=== PATIENT | female | born 1970 | race Two or more races ===

== ENCOUNTER 2019-08-09 15:24 | Inpatient (IN) | payer OTHER ==
[~2019-08-09] VITALS: Ht 162.6 cm; Wt 68.0 kg
--- NOTE | 2019-08-09 15:30 | NUR ---
BIB RA 58 FROM HOME, FOUND UNRESPONSIVE BY FAMILY,EMPTY ALCOHOL BOOTLE AT HER SIDE, (+) RESPONSE AFTER 4 MG NARCAN WAS GIVEN. PATIENT RESPONSIVE TO STIMULI. BREATHING EVEN AND UNLABORED, NO SOB NOTED, HOB ELEVATED, ATTACHED TO THE POUNCING MACHINE OPERATOR. NOTED WITH SOME FOAMING ON THE MOUTH. SUCTION PROVIDED.
[2019-08-09] MEDS ORDERED: ONDANSETRON HCL/PF - ER 4 MG/2 ML VIAL IV ONE (16:00)
[2019-08-09] MEDS ORDERED: IV NS 0.9% 1,000 ML BAG IV ONE (16:00)
[2019-08-09] MEDS ORDERED: ONDANSETRON HCL/PF 4 MG/2 ML VIAL ONE (16:05)
[2019-08-09 16:06] LABS: LYMPHOCYTES # (AUTO) 1.6 /CMM (0.8-4.8); MEAN CORPUSCULAR HGB CONC 31 g/dl (31.0-36.0); MONOCYTES # (AUTO) 0.6 /CMM (0.1-1.30); RED BLOOD CELL COUNT(AUTO) 5.85 MIL/uL (4.0-5.2)
[2019-08-09 16:14] LABS: BASOPHILS % (AUTO) 0.6 % (0.0-2.0); CALCIUM, SERUM 9.3 mg/dL (8.5-10.1); CARBON DIOXIDE 27 mmol/L (21-32); CHLORIDE 105 mmol/L (98-107); CREATININE 0.9 mg/dL (0.6-1.3); EOSINOPHILS % (AUTO) 1.9 % (0.0-6.0); GLUCOSE 113 mg/dL (74-106); HEMATOCRIT 40 % (33-45); HEMOGLOBIN 12.3 g/dL (11.5-14.8); LYMPHOCYTES % (AUTO) 22.4 % (20.0-44.0); MEAN CORPUSCULAR VOLUME 68 fL (82-100); MONOCYTES % (AUTO) 8.2 % (2.0-12.0); NEUTROPHILS # (AUTO) 4.8 /CMM (1.8-8.9); NEUTROPHILS % (AUTO) 66.9 % (43.0-81.0); PLATELET COUNT (AUTO) 252 /CMM (150-450); POTASSIUM 3.7 mmol/L (3.5-5.1); SODIUM SERUM 142 mmol/L (136-145); UREA NITROGEN, BLOOD 12 mg/dL (7-18); WHITE BLOOD COUNT (AUTO) 7.2 K/uL (4.3-11.0)
[2019-08-09 16:27] LABS: ACETAMINOPHEN < 2 ug/ml (10-30); ALANINE AMINOTRANSFERASE 52 U/L (12-78); ALBUMIN 3.8 g/dL (3.4-5.0); ALCOHOL, BLOOD < 3 mg/dL (0-0); ALKALINE PHOSPHATASE 106 U/L (46-116); ASPARTATE AMINOTRANSFERASE 29 U/L (15-37); BILIRUBIN,DIRECT 0.1 mg/dL (0.0-0.2); BILIRUBIN,TOTAL 0.4 mg/dL (0.2-1.0); SALICYLATE < 2.8 mg/dL (2.8-20.0); TOTAL PROTEIN, SERUM 7.4 g/dL (6.4-8.2)
[2019-08-09] MEDS ORDERED: NALOXONE HCL 0.4 MG/ML AMPUL IV ONE (17:00)
[2019-08-09] MEDS ORDERED: NALOXONE HCL 0.4 MG/ML AMPUL ONE (17:07)
--- NOTE | 2019-08-09 19:47 | NUR ---
PT EASILY AROUSABLE. NO ACUTE DISTRESS NOTED. WILL CONTINUE TO MONITOR
--- NOTE | 2019-08-09 21:06 | NUR ---
SPOKE WITH DAUGHTER NENITA HENSON ON THE PHONE. DAUGHTER IS ON EMERGENCY CONTACT. GAVE HER UPDATE ON PT STATUS. DAUGHTER STATED SHE CAN PARCEL POST DELIVERY THE PT IF PT GETS DISCHARGED.
--- NOTE | 2019-08-09 22:18 | NUR ---
CALLED RADIOLOGY FOR CT
--- NOTE | 2019-08-09 22:33 | NUR ---
PT PLACED PT ON 4 LPM O2.
--- NOTE | 2019-08-09 22:45 | NUR ---
PT TAKEN TO CT
--- NOTE | 2019-08-09 23:00 | NUR ---
PT BACK FROM CT
[2019-08-10] VITALS (27 sets, daily range): BP systolic 81–120; BP diastolic 55–82
--- NOTE | 2019-08-10 00:15 | NUR ---
PT SLEEPING, NO ACUTE DISTRESS NOTED. WILL CONTINUE TO MONITOR
--- NOTE | 2019-08-10 04:09 | NUR ---
Patient is resting comfortably in bed with eyes closed. Easily aroused. VSS
--- NOTE | 2019-08-10 04:31 | NUR ---
MD MADE AWARE OF SEIZURE EPISODE. ORDERS RECEIVED.
--- NOTE | 2019-08-10 04:31 | NUR ---
NEW ONSET SEIZURE WITNESSED BY SHEET TURNER. SEIZURE LASTED FOR 1 MINUTE. SEIZURE PRECAUTIONS IMPLEMENTED.
[2019-08-10] MEDS ORDERED: LEVETIRACETAM (500MG) 500 MG/5 ML VIAL IV ONE (04:32)
[2019-08-10] MEDS ORDERED: HYDR50TA61 PO (04:52)
[2019-08-10] MEDS ORDERED: LISI-603 PO (04:52)
[2019-08-10] MEDS ORDERED: CITA10TA9 PO (04:52)
[2019-08-10] MEDS ORDERED: LEVETIRACETAM (500MG) 1,000 MG in IV NS 0.9% 100 ML IV SCH (05:00)
[2019-08-10] MEDS ORDERED: LEVETIRACETAM (500MG) 1,000 MG in IV NS 0.9% 100 ML IV ONE (05:00)
--- NOTE | 2019-08-10 05:00 | NUR ---
SPOKE TO [facility] DOCTOR [place], AUTH #[id number] RECEIVED FOR ADMISSION.
--- NOTE | 2019-08-10 05:12 | NUR ---
NURSE NOT AVAILABLE. CALL BACK IN 5 MINUTES
--- NOTE | 2019-08-10 05:20 | NUR ---
REPORT GIVEN TO ESTUARDO RYAN
--- NOTE | 2019-08-10 05:30 | NUR ---
SALONI PARMAR PAGED PER GRANT HERNANDES ORDER.
--- NOTE | 2019-08-10 05:40 | NUR ---
SHANKER OUT AT BEDSIDE FOR BLOOD DRAW
[2019-08-10] MEDS ORDERED: IV NS 0.9% 500 ML IV ONE (05:45)
[2019-08-10] MEDS ORDERED: CT SWABBABLE VALVE TRANS SET 1 EA INFUS.SET MC ONE (05:45)
[2019-08-10] MEDS ORDERED: IOHEXOL-350 100 ML VIAL IV ONE (05:45)
--- NOTE | 2019-08-10 05:47 | NUR ---
PT SENT TO CT
--- NOTE | 2019-08-10 05:59 | NUR ---
PT BACK FROM CT
[2019-08-10 06:50] LABS: ABG BASE EXCESS -7.6 mmol/L; ABG PCO2 77.7 mmHg (35.0-45.0); ABG PH 7.104 (7.350-7.450); ABG PO2 159.8 mmHg (75.0-100.0); AaDO2 182.5 mmHg; SITE, ABG Left Brachial
--- NOTE | 2019-08-10 06:56 | NUR ---
SPOKE WITH DEBBIE FROM POISON CONTROL. ACCDG TO DEBBIE, MONITOR AND TREAT SYMPTOMS FOR NOW. CALL IF PATIENT WORSENS.
--- NOTE | 2019-08-10 07:20 | NUR ---
MD, RT AND RN AT BEDSIDE FOR INTUBATION SET UP.
--- NOTE | 2019-08-10 07:21 | NUR ---
MEDS GIVEN KLAUS AND ETOMIDATE PER ORDER .
--- NOTE | 2019-08-10 07:22 | NUR ---
INUBATION DONE BY , ET SIZE 7 AND 24 AT THE LIP, POSITIVE COLOR CHANGE, HOOKED TO MECH VENT.
[2019-08-10] MEDS ORDERED: ETOMIDATE 2 MG/ML VIAL IV ONE ×2 (07:30→09:01)
[2019-08-10] MEDS ORDERED: ROCURONIUM BROMIDE 100 MG/10 ML VIAL IV ONE (07:30)
--- NOTE | 2019-08-10 07:36 | NUR ---
PAGED DR. BANG.
--- NOTE | 2019-08-10 07:40 | NUR ---
NG TUBE INSERTED PER .
[2019-08-10 07:43] LABS: THYROID STIMULATING HORMONE 3.752 uIU/mL (0.358-3.74)
--- NOTE | 2019-08-10 07:50 | NUR ---
REPORT RECEIVED FROM VISHNU MARTE FOR ESTER
--- NOTE | 2019-08-10 07:51 | NUR ---
REPORT GIVEN TO ESTUARDO HAGAN FOR ESTER
--- NOTE | 2019-08-10 07:56 | NUR ---
REPORT GIVEN TO RAJNI MARTE FOR ESTER
--- NOTE | 2019-08-10 07:57 | NUR ---
COVID SWAB SENT TO [facility]
--- NOTE | 2019-08-10 07:57 | NUR ---
FLU SWAB SENT TO LAB
--- NOTE | 2019-08-10 07:57 | NUR ---
URINE SENT TO LAB
[2019-08-10] MEDS ORDERED: TERBUTALINE SULFATE 1 MG/ML VIAL ONE (08:57)
[2019-08-10] MEDS ORDERED: TERBUTALINE SULFATE 1 MG/ML VIAL SQ ONE (09:00)
[2019-08-10] MEDS ORDERED: ROCURONIUM BROMIDE 50 MG/5 ML IV ONE (09:01)
--- NOTE | 2019-08-10 09:48 | NUR ---
ROOM 250
--- NOTE | 2019-08-10 09:48 | NUR ---
ROOM 256
--- NOTE | 2019-08-10 09:54 | NUR ---
REPORT GIVEN TO MIGUEL MARTE OF ICU
[2019-08-10] MEDS: IV D5/ 0.9% NACL 1,000 ML IV PRN ×2 (10:59→18:22)
[2019-08-10] MEDS ORDERED: PROPOFOL 100 ML IV PRN (11:00)
[2019-08-10] MEDS: ACETAMINOPHEN 650 MG/20.3 ML UDC NG PRN ×2 (11:05→18:23)
[2019-08-10 11:09] LABS: ABG BASE EXCESS -2.2 mmol/L; ABG PCO2 34.1 mmHg (35.0-45.0); ABG PH 7.417 (7.350-7.450); ABG PO2 332.6 mmHg (75.0-100.0); PEEP,BG 5 cm H2O; SITE, ABG Right Radial; VT, ABG 500 mL
--- NOTE | 2019-08-10 11:25 | NUR ---
VICE PRESIDENT OF MANUFACTURING RECEIVED PT FROM ER INTUBATED ON VENT SETTINGS NOTED VS SABLE, IV ACCESS PATENT RAGSDALE PRESENT DRAINING CLEAR URINE, NG TUBE POSITIVE PLACEMENT, CONTACTED DR. DIANNA ROCHA, ORDERS RECEIVED AND FOLLOWED, PT HAS GREEN THICK MUCOUS DISCHARGE FROM ETT, FEVER 101.3 TYLENOL GIVEN COLLING MEASURES TAKEN WILL CONTINUE TO MONITOR.
[2019-08-10 12:00] LABS: ABG BASE EXCESS -0.6 mmol/L; ABG OXYGEN SATURATION 97.6 % (92.0-98.5); ABG PCO2 33.5 mmHg (35.0-45.0); ABG PH 7.451 (7.350-7.450); ABG PO2 94.9 mmHg (75.0-100.0); AaDO2 223.9 mmHg; COHb 0.5 % (0.5-1.5); MetHb 0.4 % (0.0-1.5); O2Hb 96.7 % (94.0-97.0); PEEP,BG 5 cm H2O; SITE, ABG Left Brachial; VT, ABG 500 mL
[2019-08-10 12:10] LABS: BASOPHILS % (AUTO) 0.3 % (0.0-2.0); EOSINOPHILS % (AUTO) 1.5 % (0.0-6.0); HEMATOCRIT 39 % (33-45); HEMOGLOBIN 11.8 g/dL (11.5-14.8); LYMPHOCYTES # (AUTO) 0.9 /CMM (0.8-4.8); LYMPHOCYTES % (AUTO) 11.9 % (20.0-44.0); MEAN CORPUSCULAR HGB CONC 31 g/dl (31.0-36.0); MEAN CORPUSCULAR VOLUME 68 fL (82-100); MONOCYTES # (AUTO) 0.3 /CMM (0.1-1.30); MONOCYTES % (AUTO) 3.5 % (2.0-12.0); NEUTROPHILS # (AUTO) 6.2 /CMM (1.8-8.9); NEUTROPHILS % (AUTO) 82.8 % (43.0-81.0); PLATELET COUNT (AUTO) 233 /CMM (150-450); RED BLOOD CELL COUNT(AUTO) 5.65 MIL/uL (4.0-5.2); WHITE BLOOD COUNT (AUTO) 7.5 K/uL (4.3-11.0)
[2019-08-10 12:21] LABS: POTASSIUM 3.8 mmol/L (3.5-5.1)
--- NOTE | 2019-08-10 14:00 | NUR ---
TAPE RECORDER MECHANIC LACTIC ACID ELEVATED CRITICAL NOTIFIED DR. JOSEFINA BUSTAMANTE ORDERS RECEIVED AND CARRIED OUT , ALSO NOTIFIED PT HAS BLOOD TINGED NASAL DISCHARGE NO NEW ORDERS, PT STILL HAVE FEVER 101 COOLING MEASURES TAKEN WILL CONTINUE TO MONITOR.
[2019-08-10] MEDS ORDERED: IV NS 0.9% 1,000 ML BAG IV ONE (15:30)
--- NOTE | 2019-08-10 19:10 | NUR ---
CRIME SCENE TECHNICIAN NOTE RECEIVED PATIENT IN BED RESTING, WITH HOB ELEVATED. OBTUNDED. VENT DEPENDENT. BREATHING IS EVEN AND NON LABORED, NO SOB NOTED. RESPONSIVE TO LOCALIZED PAIN. ON RAGSDALE CATH, URINE IS CLEAR AND YELLOW IN COLOR, DRAINING WELL. NGT ON LEFT NARE, CLAMPED. IV SITES ON LAC GAUGE 20 AND RAC GAUGE 20. BOTH IV SITES CLEAN AND PATENT. ON BILATERAL SOFT WRIST RESTRAINTS. CAPILLARY REFILL < 3 SECONDS. ON IV HYDRATION D5NS RUNNING AT 150 MLS/HR. IN NO APPARENT DISTRESS NOTED AT THIS TIME. BED IS LOCKED AND LOWERED FOR SAFETY. WILL CONTINUE TO MONITOR.
--- NOTE | 2019-08-10 19:48 | NUR ---
RT NOTE: RECEIVED PATIENT ON MECH VENT ON NOTED SETTINGS PER MD ORDER WITH 7.0 ETT SECURED AT 24CM AT THE TEETH. ALARMS CHECKED AND AUDIBLE. CUFF PRESSURE TAPER MACHINE. AMBU BAG AT [facility]. VENT PLUGGED INTO THE RED OUTLET. SUCTION DONE PRN. NO RESP DISTRESS NOTED. WILL CONT TO MONITOR PATIENT.
[2019-08-10] MEDS ORDERED: PIPERACILLIN /TAZOBACTAM 3.375 G in IV D5W 50 ML IV ONE (20:00)
--- NOTE | 2019-08-10 20:00 | NUR ---
RN NOTE RECEIVED CRITICAL LAB VALUE: LACTIC ACID 2.6 EXECUTIVE VP SALONI JAVIER MADE AWARE. NO NEW ORDERS RECEIVED.
[2019-08-11] VITALS (28 sets, daily range): BP systolic 93–127; BP diastolic 54–85
[2019-08-11] MEDS: IV D5/ 0.9% NACL 1,000 ML IV PRN ×3 (01:31→16:39)
[2019-08-11] MEDS: PIPERACILLIN /TAZOBACTAM 3.375 G in IV D5W 100 ML IV SCH ×3 (01:36→17:36)
[2019-08-11 04:17] LABS: BASOPHILS % (AUTO) 0.3 % (0.0-2.0); EOSINOPHILS % (AUTO) 1.3 % (0.0-6.0); HEMATOCRIT 30 % (33-45); HEMOGLOBIN 9.6 g/dL (11.5-14.8); LYMPHOCYTES # (AUTO) 1.6 /CMM (0.8-4.8); LYMPHOCYTES % (AUTO) 17.9 % (20.0-44.0); MEAN CORPUSCULAR HGB CONC 32 g/dl (31.0-36.0); MEAN CORPUSCULAR VOLUME 67 fL (82-100); MONOCYTES # (AUTO) 0.6 /CMM (0.1-1.30); NEUTROPHILS # (AUTO) 6.7 /CMM (1.8-8.9); NEUTROPHILS % (AUTO) 73.5 % (43.0-81.0); PLATELET COUNT (AUTO) 181 /CMM (150-450); RED BLOOD CELL COUNT(AUTO) 4.48 MIL/uL (4.0-5.2); WHITE BLOOD COUNT (AUTO) 9.1 K/uL (4.3-11.0)
[2019-08-11 04:33] LABS: CREATININE 0.8 mg/dL (0.6-1.3); POTASSIUM 3.5 mmol/L (3.5-5.1)
[2019-08-11 04:42] LABS: CALCIUM, SERUM 8.2 mg/dL (8.5-10.1)
--- NOTE | 2019-08-11 05:12 | NUR ---
RN NOTE PATIENT TOLERATED BED BATH WELL WITH MILD AGITATION. NO BM NOTED. RAGSDALE CATH DRAINING WELL. WILL CONTINUE TO MONITOR.
--- NOTE | 2019-08-11 06:57 | NUR ---
ARC CUTTER CLOSING NOTE NO SIGNIFICANT CHANGES NOTED THROUGHOUT THE NIGHT. PATIENT OBTUNDED, RESPONSIVE TO LOCALIZED PAIN. STILL ON BILATERAL SOFT WRIST RESTRAINTS. ALL DUE MEDS GIVEN AND TOLERATED WELL. KEPT NPO. ALL NEEDS ATTENDED AND MET. PATIENT KEPT CLEAN, DRY, AND COMFORTABLE. WILL ENDORSE TO AM SHIFT RN FOR CONTINUATION OF CARE.
--- NOTE | 2019-08-11 07:30 | NUR ---
RN OPENING NOTES RECEIVED PATIENT RESTING IN BED COMFORTABLY, NO S/SX OF DISTRESS AT THIS TIME. SHE IS ON MECH VENT, AC 16, TV 500, FIO2 35%, TOLERATING SETTINGS WELL. PT IS OBTUNDED, NON-VERBAL. NGT ON L NARE PATENT AND INTACT, CLAMPED. RAGSDALE CATH PATENT AND INTACT. LAC 20G AND RHAND 20 G ARE PATENT AND INTACT, INFUSING D5 NS AT 150 ML/HR. SAFETY MEASURES HAVE BEEN IMPLEMENTED, CALL LIGHT IS WITHIN REACH, BED IS IN LOWEST AND LOCKED POSITION, SIDE RAILS UP X2, WILL CONTINUE TO MONITOR FOR ANY CHANGES.
--- NOTE | 2019-08-11 08:11 | NUR ---
RN NOTES VENT SETTINGS HAVE CHANGED FROM AC TO SIMV DURING SPONTANEOUS BREATHING TRIAL. PT APPEARS TO BE TOLERATING WELL, VITALS WNL. WILL CONTINUE TO MONITOR FOR ANY CHANGES.
[2019-08-11 08:48] LABS: ABG BASE EXCESS -4.5 mmol/L; ABG PCO2 30.3 mmHg (35.0-45.0); ABG PH 7.419 (7.350-7.450); ABG PO2 103.2 mmHg (75.0-100.0); AaDO2 111.1 mmHg; COHb 0.2 % (0.5-1.5); MetHb 0.6 % (0.0-1.5); O2Hb 96.2 % (94.0-97.0); PEEP,BG 5 cm H2O; SITE, ABG Left Radial; VENT MODE, BG SIMV PS 15
--- NOTE | 2019-08-11 10:09 | NUR ---
ESTUARDO NOTES DR. MONTES MADE AWARE REGARDING HOME MEDICATION RECONCILIATION, WILL CONTINUE TO MONITOR Addendum: 08/11/19 at 1117 by JENNIFER BAUTISTA RN CORRECTION: DR. ROCHA NOTIFIED REGARDING HOME MED RECON
[2019-08-11] MEDS: ACETAMINOPHEN 650 MG/20.3 ML UDC NG PRN (10:27)
--- NOTE | 2019-08-11 12:19 | NUR ---
SW Consult SW was consulted due to the pts substance abuse. Pts toxicology was positive for amphetamines, cannabis and opiates. SW was unable to meet with the pt due to the pt being intubated. Plan: SW will follow up with the pt once the pt is able to be interviewed.
--- NOTE | 2019-08-11 15:36 | NUR ---
RN NOTES PATIENT REMOVED HER ETT. PT WAS IN BILATERAL SOFT WRISTS RESTRAINTS BUT MANAGED TO EXTUBATE HERSELF. PT IS NOW ON 3L OF OXYGEN VIA NC, TOLERATING WELL. SATING AT 95-96%, NO RESP DISTRESS NOTED. PT WAS SUCTIONED AND CLEARED OF SECRETIONS. VITAL SIGNS ARE STABLE. PT IS STILL GOING IN AND OUT OF CONSCIOUSNESS. DR. HAGER AND DR. ROCHA MADE AWARE, NO NEW ORDERS AT THIS TIME, WILL CONTINUE TO MONITOR FOR ANY CHANGES.
[2019-08-11 16:41] LABS: ABG OXYGEN SATURATION 95.4 % (92.0-98.5); ABG PCO2 39.4 mmHg (35.0-45.0); ABG PH 7.381 (7.350-7.450); ABG PO2 79.8 mmHg (75.0-100.0); AaDO2 87.8 mmHg; COHb 0.2 % (0.5-1.5); MetHb 0.3 % (0.0-1.5); O2Hb 94.9 % (94.0-97.0); SITE, ABG Right Radial; VENT MODE, BG nasal cannula
--- NOTE | 2019-08-11 19:10 | NUR ---
RN NOTES PATIENT IS RESTING IN BED COMFORTABLY POST SELF EXTUBATION. SHE IS ON 3L OF OXYGEN VIA NC, TOLERATING WELL. VITAL SIGNS ARE STABLE, PT NEEDS HAVE BEEN MET. SAFETY MEASURES HAVE BEEN IMPLEMENTED, CALL LIGHT IS WITHIN REACH, BED IS IN LOWEST AND LOCKED POSITION, BILATERAL SOFT WRIST RESTRAINTS INTACT. PT HAS BEEN ENDORSED TO NIGHTSHIFT RN FOR ESTER.
--- NOTE | 2019-08-11 20:00 | NUR ---
PATIENT IN BED COMFORTABLY POST SELF EXTUBATION.ON 3L OF OXYGEN VIA NC, TOLERATING WELL.SATING 99% VITAL SIGNS STABLE AFEBRILE ,NO SOB NO DISTRESS NOTED ON NGT INTACT AND PATENT ,PTS STILL ON NPO STATUS ,ALL NEEDS ATTENDED TO . SAFETY MEASURES HAVE BEEN IMPLEMENTED, CALL LIGHT IS WITHIN REACH, BED IS IN LOWEST AND LOCKED POSITION, BILATERAL SOFT WRIST RESTRAINTS INTACT. WILL CONTINUE TO MONITOR PTS.
--- NOTE | 2019-08-11 21:37 | NUR ---
TRADER NOTES RECEIVED A CALL FROM MY GUTIERRES UPDATED WITH PTS CURRENT CONDITION .
[2019-08-12] VITALS (27 sets, daily range): BP systolic 122–171; BP diastolic 63–101
[2019-08-12] MEDS: PIPERACILLIN /TAZOBACTAM 3.375 G in IV D5W 100 ML IV SCH ×3 (01:48→18:03)
[2019-08-12 04:58] LABS: BASOPHILS % (AUTO) 0.5 % (0.0-2.0); EOSINOPHILS % (AUTO) 2.6 % (0.0-6.0); HEMATOCRIT 33 % (33-45); HEMOGLOBIN 10.1 g/dL (11.5-14.8); LYMPHOCYTES # (AUTO) 1.4 /CMM (0.8-4.8); LYMPHOCYTES % (AUTO) 17.2 % (20.0-44.0); MEAN CORPUSCULAR HGB CONC 31 g/dl (31.0-36.0); MEAN CORPUSCULAR VOLUME 67 fL (82-100); MONOCYTES # (AUTO) 0.5 /CMM (0.1-1.30); MONOCYTES % (AUTO) 6.5 % (2.0-12.0); NEUTROPHILS # (AUTO) 5.9 /CMM (1.8-8.9); NEUTROPHILS % (AUTO) 73.2 % (43.0-81.0); PLATELET COUNT (AUTO) 183 /CMM (150-450); RED BLOOD CELL COUNT(AUTO) 4.82 MIL/uL (4.0-5.2); WHITE BLOOD COUNT (AUTO) 8.1 K/uL (4.3-11.0)
[2019-08-12 05:14] LABS: CALCIUM, SERUM 8.4 mg/dL (8.5-10.1); CREATININE 0.9 mg/dL (0.6-1.3); MAGNESIUM 1.8 mg/dL (1.8-2.4); PHOSPHORUS 2.7 mg/dL (2.5-4.9); POTASSIUM 3.6 mmol/L (3.5-5.1)
--- NOTE | 2019-08-12 06:35 | NUR ---
BALING MACHINE TENDER NOTES PTS REMAINS ON 02 AT 3LITERS VIA NC NO SOB NO DISTRESS NOTED , REMAINS ON IVF D5NS AT 150CC/HR INFUSING WELL , SEEN BY DR MARRERO PTS CAN BE DOWNGRADE ,WILL ENDORSE TO RN DAY SHIFT FOR CONTINUITY OF CARE.KEPT PTS CLEAN DRY AND COMFORTABLE.
[2019-08-12] MEDS: IV D5/ 0.9% NACL 1,000 ML IV PRN ×3 (07:38→22:00)
[2019-08-12 08:21] LABS: ABG BASE EXCESS -2.9 mmol/L; ABG OXYGEN SATURATION 95.6 % (92.0-98.5); ABG PCO2 36.5 mmHg (35.0-45.0); ABG PH 7.391 (7.350-7.450); ABG PO2 80.2 mmHg (75.0-100.0); AaDO2 76.4 mmHg; COHb 0.3 % (0.5-1.5); MetHb 0.6 % (0.0-1.5); O2Hb 94.7 % (94.0-97.0); SITE, ABG Right Radial; VENT MODE, BG 2L NC
--- NOTE | 2019-08-12 09:45 | NUR ---
RN NOTE 0715: Received patient lethargic. Able to answer 1 to 2 questions at a time. Very drowsy. 97% on 3LPM of O2 via NC, will titrate as tolerated. Rgiht NGT intact, clamped. Mccormick cath intact, with clear yellow urine drained to BSD. PIVs intact. IVF infusing as ordered. SR on the monitor. 0830: Tried to titrate off O2, went to 89% sat, 92 on 1LPM, will keep on 2LPM, 95% sat. 0900: S/E by Dr. Cintron, still lethargic, aware for ABG result per MD, will keep her in ICU, CN aware. 0945: No any significant changes. Spoke with daughter via phone, updated re: patient's condition.
[2019-08-12] MEDS: hydrALAZINE HCL IV 20 MG VIAL IV PRN (18:45)
--- NOTE | 2019-08-12 19:15 | NUR ---
RN OPENING NOTES RECEIVED PATIENT SLEEPING IN BED, BUT EASY TO AROUSE, A/OX3, LETHARGIC. ON 2L OF OXYGEN VIA NC, TOLERATING WELL, SATURATING 98% AT THE MOMENT. NO SOB OR RESPIRATORY DISTRESS NOTED. ON TELE MONITOR SR WITH HR 80'S. IV SITES BOTH FLUSHING AND PATENT, D5NS RUNNING AT 150ML/HR, TOLERATING WELL, NO INFILTRATION NOTED. RAGSDALE CATH INTACT AND DRAINING WELL. NPO EXCEPT MEDS. SAFETY MEASURES IN PLACE; CALL LIGHT WITHIN REACH, SIDE RAILS UP X2, BED LOWEST AND LOCKED POSITION, HOB ELEVATED, BED ALARM ON. WILL CONTINUE TO MONITOR PATIENT CLOSELY.
[2019-08-13] VITALS (16 sets, daily range): BP systolic 138–171; BP diastolic 63–99
[2019-08-13] MEDS: ACETAMINOPHEN 650 MG/20.3 ML UDC NG PRN (00:18)
--- NOTE | 2019-08-13 00:30 | NUR ---
RN NOTES FREQUENT ROUNDING DONE. PATIENT RESTING IN BED COMFORTABLY. NOTED WITH FEVER 100.3 VIA ORALLY. TYLENOL GIVEN. COOLING MEASURES IN PLACE. WILL CONT TO MONITOR PATIENT.
--- NOTE | 2019-08-13 01:30 | NUR ---
RN NOTES RECHECKED PATIENT TEMP 99.6 VIA ORALLY. COOLING MEASURES MAINTAINED. WILL CONT TO MONITOR.
[2019-08-13] MEDS: PIPERACILLIN /TAZOBACTAM 3.375 G in IV D5W 100 ML IV SCH ×3 (02:00→19:20)
[2019-08-13] MEDS: IV D5/ 0.9% NACL 1,000 ML IV PRN ×2 (04:55→14:58)
[2019-08-13] MEDS: hydrALAZINE HCL IV 20 MG VIAL IV PRN ×2 (06:09→13:00)
--- NOTE | 2019-08-13 06:46 | NUR ---
RN CLOSING NOTES PATIENT SLEEPING IN BED, BUT EASY TO AROUSE, A/OX3, MORE ALERT NOW. HYDRALAZINE PRN GIVEN DUE TO SBP 167, BP NOW 141/87. ON 2L OF OXYGEN VIA NC, TOLERATING WELL, SATURATING 98% AT THE MOMENT. NO SOB OR RESPIRATORY DISTRESS NOTED. ON TELE MONITOR SR WITH HR 70'S. IV SITES BOTH FLUSHING AND PATENT, D5NS RUNNING AT 150ML/HR, TOLERATING WELL, NO INFILTRATION NOTED. RAGSDALE CATH INTACT AND DRAINING WELL. SAFETY MEASURES MAINTAINED. KEPT PT CLEAN, DRY, AND COMFORTABLE. WILL ENDORSE TO AM RN FOR ESTER. AT 0545, DAUGHTER CALLED AND UPDATED ON PATIENT'S CONDITION AND ANSWERED ALL QUESTIONS.
--- NOTE | 2019-08-13 08:00 | NUR ---
SEEN SLEEPING BUT EASILY AROUSABLE TO NAME. WAKE, ALERT AND ORIENTED, ANSWERS APPROPRIATELY, CLEAR SPEECH, FOLLOWS SIMPLE COMMANDS. HEMODYNAMICALY STABLE ON THE MONITOR. DENIES PAIN AND DISCOMFORT.
--- NOTE | 2019-08-13 10:00 | NUR ---
SEEN AND EXAMINED BY DR. MOODY TO DOWNGRADE TO TELE STATUS.
--- NOTE | 2019-08-13 12:00 | NUR ---
PATIENT REMAINS AWAKE AND ALERT. O2 AT 2 L N/C-SPO2 98%. PLACED ON ROOM AIR-SPO2 REMAINS>96%. AWAITING TO TRANSFER TO TELE FLOOR.
--- NOTE | 2019-08-13 12:15 | NUR ---
REPORT GIVEN TO ESTUARDO MENDEZ FOR ESTER.
--- NOTE | 2019-08-13 12:35 | NUR ---
TRANSFERRED TO . 311-1 IN STABLE CONDITION. SR-80'S. SBP.150'S. RA -SPO2 96%.
--- NOTE | 2019-08-13 12:45 | NUR ---
RECEIVED PT. VIA BED FROM ICU.ALERT AND ORIENTED X4.IV SITES BOTH HANDS.PLEASANT,COOPERATIVE.VS TAKEN HOOKED UP TO TELE.SR RATE OF 77.SIDE RAILS UP CALL LIGHT WITHIN REACH.SKIN WARM AND DRY.TEARY EYED AT TIMES.
--- NOTE | 2019-08-13 13:00 | NUR ---
SHORTLY AFTER ARRIVAL ON FLOOR MEDICATED WITH HYDRALAZINE FOR HIGH BP.
--- NOTE | 2019-08-13 18:30 | NUR ---
NO CHANGE IN STATUS.
--- NOTE | 2019-08-13 19:45 | NUR ---
TELERN FULLY AWAKE, PRESENT IVF INFUSING WELL. COMPLAINTS OF LOWER BACK PAIN. PLACED CALL TO DR MEDLEY, ORDERS RECEIVED.
[2019-08-13] MEDS ORDERED: LIDOCAINE 5% (PATCH) 1 EA PATCH TP SCH (20:30)
[2019-08-13] MEDS: ACETAMINOPHEN 325 MG TABLET PO PRN (21:12)
[2019-08-14] VITALS: BP 145/79
[2019-08-14] MEDS: IV D5/ 0.9% NACL 1,000 ML IV PRN (02:11)
[2019-08-14] MEDS: PIPERACILLIN /TAZOBACTAM 3.375 G in IV D5W 100 ML IV SCH ×2 (02:11→09:23)
--- NOTE | 2019-08-14 04:37 | NUR ---
TELERN REMAINS SR TO ST ON THE MONITOR. ASLEEP OF THIS TIEM. CLOSELY WATCHED.
--- NOTE | 2019-08-14 06:50 | NUR ---
TELERN REMAINS UNCHANGED. EAGER TO GO HOME.
--- NOTE | 2019-08-14 07:30 | NUR ---
FONDANT MACHINE OPERATOR OPENING NOTES RECEIVED PT IN BED, AWAKE. A/O X4,WITH OCCASIONAL COUGHING NOTED. PT TOLERATING RA, WITH NO ACUTE RESPIRATORY DISTRESS NOTED. ON TELEMONITORING WITH SR 74. PT STATED PAIN OF 5/10 AT THE BACK, PT ALSO ADDED SHE HAS LIDOCAINE PATCH AT THE MOMENT AND WANTS TO REPLACE IT WITH A NEW ONE AT 9 AM. RN TO FOLLOW UP WITH DR. ROCHA/HOSPITALIST. RN INFORMED PT REGARDING USUAL DOSE OF PATCH 12HOURS, ON AND 12HOURS OFF. PT INSISTING SHE WANTED A NEW ONE AFTER. PT ALSO CONCERNED WHEN SHE WILL BE DISCHARGE AND CAN IT BE TODAY, RN AGAIN TO FOLLOW UP WITH HOSPITALIST. IVF D5NS AT 150ML/HR TO LAC G20, INTACT AND INFUSING WELL. PT KEPT COMFORTABLE IN BED. CALL LIGHT KEPT WITHIN REACH. PT'S BED IN LOWEST, LOCKED POSITION WITH SRX3. WILL CONTINUE PLAN OF CARE.
[2019-08-14 08:00] VITALS: BP 161/83
[2019-08-14 08:37] LABS: BASOPHILS % (AUTO) 0.7 % (0.0-2.0); EOSINOPHILS % (AUTO) 4.8 % (0.0-6.0); HEMATOCRIT 29 % (33-45); HEMOGLOBIN 9.4 g/dL (11.5-14.8); LYMPHOCYTES # (AUTO) 1.6 /CMM (0.8-4.8); MEAN CORPUSCULAR HGB CONC 32 g/dl (31.0-36.0); MEAN CORPUSCULAR VOLUME 65 fL (82-100); MONOCYTES # (AUTO) 0.4 /CMM (0.1-1.30); MONOCYTES % (AUTO) 9.8 % (2.0-12.0); NEUTROPHILS # (AUTO) 2.1 /CMM (1.8-8.9); NEUTROPHILS % (AUTO) 48.7 % (43.0-81.0); PLATELET COUNT (AUTO) 237 /CMM (150-450); RED BLOOD CELL COUNT(AUTO) 4.49 MIL/uL (4.0-5.2); WHITE BLOOD COUNT (AUTO) 4.4 K/uL (4.3-11.0)
[2019-08-14 09:12] LABS: CALCIUM, SERUM 8.1 mg/dL (8.5-10.1); CREATININE 0.7 mg/dL (0.6-1.3); MAGNESIUM 1.6 mg/dL (1.8-2.4); PHOSPHORUS 3.1 mg/dL (2.5-4.9)
[2019-08-14 09:26] LABS: POTASSIUM 2.7 mmol/L (3.5-5.1)
[2019-08-14] MEDS: ACETAMINOPHEN 325 MG TABLET PO PRN (09:39)
[2019-08-14] MEDS ORDERED: POTASSIUM CL. PREMIX PERIPHER. 50 ML IV SCH (11:00)
--- NOTE | 2019-08-14 11:19 | NUR ---
RN NOTES SEEN AND EVALUATED [place] DR. ROCHA, PT MAY GO HOME TODAY. REMOVE RAGSDALE CATH. MAY PLACE LIDOCAINE PATCH AT THE BACK BEFORE LEAVING TODAY WELL. INFORMED PATIENT AND AWARE OF THE PLAN.
--- NOTE | 2019-08-14 11:46 | NUR ---
RN NOTES REMOVED RAGSDALE CATH AT 1140, EMPTIED 700 ML. WILL CONTINUE TO MONITOR PT.
[2019-08-14] MEDS ORDERED: POTASSIUM CHLORIDE 20 MEQ TAB.PRT.SR PO ONE (12:30)
[2019-08-14] MEDS ORDERED: LIDOCAINE 5% (PATCH) 1 EA PATCH TP ONE (12:30)
--- NOTE | 2019-08-14 16:10 | NUR ---
PLAYGROUND MONITOR NOTES PT A/O X4. AMBULATORY. TOLERATING RA, WITH NO ACUTE RESPIRATORY DISTRESS NOTED. PT DENIES ANY PAIN OR DISCOMFORT AT THE TIME OF DISCHARGE. PT REVIEWED AND SIGNED DISCHARGE INSTRUCTIONS AND INVENTORY LIST. MISSING BLACK NIGHT GOWN, PER PT "IT DOESNT MATTER", OTHER BELONGINGS WITH THE PT. PIVS TO RIGHT HAND G22 AND LAC G20, REMOVED AND APPLIED DRY DRESSING. NO PICTURES TAKEN, PER PT SKIN IS INTACT AND NO NEED FOR PICTURES. RN EXPLAINED UNIT PROTOCOL, PT INSISTED TO REFUSE. ALL NEEDS AND CARE ATTENDED AND PROVIDED. VS STABLE. PT ESCORTED TO THE LOBBY VIA WHEELCHAIR. CN AND HOSPITALIST AWARE OF DISCHARGE. PT LEFT THE UNIT AT 1600.
== END 2019-08-14 16:03 | disposition home or self-care (01) | DRG 812 ==
LOC: ER 15:28 → TELE 08-10 05:09 → ICU 08-10 09:58 → TELE 08-13 12:31
PROVIDERS: ADMIT Internal Medicine Nephrology; ATTEND Internal Medicine Nephrology
PROC: 0BH17EZ Insertion of Endotracheal Airway into Trachea, Via Natural or Artificial Opening (ICD-10-PCS; principal; 2019-08-10)
PROC: 5A1945Z Respiratory Ventilation, 24-96 Consecutive Hours (ICD-10-PCS; principal; 2019-08-10)
DX: T40.601A Poisoning by unspecified narcotics, accidental (unintentional), initial encounter (principal); J96.02 Acute respiratory failure with hypercapnia; G92 Toxic encephalopathy; I10 Essential (primary) hypertension; Y92.89 Other specified places as the place of occurrence of the external cause; T40.7X1A Poisoning by cannabis (derivatives), accidental (unintentional), initial encounter; T43.621A Poisoning by amphetamines, accidental (unintentional), initial encounter; D64.9 Anemia, unspecified; R13.10 Dysphagia, unspecified
CPT/HCPCS: 31720; 36415; 36600; 70450-TC; 70496-TC; 70498-TC; 71045-TC; 80048-TC; 80076-TC; 80305; 82140-TC; 82550-TC; 82803-TC; 82962-TC; 83605-TC; 83735-TC; 84100-TC; 84439-TC; 84443-TC; 84484-TC; 85025-TC; 85730-TC; 94002-TC; 99082-TC; G0378; G0480; J0360; J1953; J2310; J2405; J2543; J3105; J3490; J7030; J7040; J7042; J7050; J7060; Q9967